=== PATIENT | male | born 1960 | race Caucasian/White ===

== ENCOUNTER → 2018-09-18 | Outpatient (CLI) | payer OTHER | LOC: HYPER 09-15 06:54 | DX: L89.152 Pressure ulcer of sacral region, stage 2 (principal); L89.311 Pressure ulcer of right buttock, stage 1; G35 Multiple sclerosis; G47.33 Obstructive sleep apnea (adult) (pediatric); G25.81 Restless legs syndrome; M85.88 Other specified disorders of bone density and structure, other site; F41.9 Anxiety disorder, unspecified; F32.9 Major depressive disorder, single episode, unspecified ==

== ENCOUNTER → 2018-11-10 | Outpatient (CLI) | payer OTHER | LOC: HYPER 10-24 09:55 | DX: L89.152 Pressure ulcer of sacral region, stage 2 (principal); L89.311 Pressure ulcer of right buttock, stage 1; G35 Multiple sclerosis; G47.33 Obstructive sleep apnea (adult) (pediatric); G25.81 Restless legs syndrome; M85.88 Other specified disorders of bone density and structure, other site; F41.9 Anxiety disorder, unspecified; F32.9 Major depressive disorder, single episode, unspecified ==